=== PATIENT | male | born 1960 | race African-American/Black ===

== ENCOUNTER → 2016-10-17 | Outpatient (CLI) | payer OTHER ==
[~2016-10-17] MED LIST: AMIT75TA2 PO; ASPI81TA19; ATOR1TAB18 PO; CHLO25TA2 PO; IBUP800T23 PO; LANTINJ SQ; LANTUS2P SQ; LISI40TA PO; LYRI75CA PO; METF1000 PO; NOVOLOGP2 SQ; PEN31MIS2; POTA-243 PO; TOPR50TA PO; VIAG100T PO; [UNRECOGNIZED DRUG - CODE] SQ
[2016-10-17 13:25] LABS: AUTOMATED NEUTROPHIL # 2.7 TH/MM3 (1.8-7.7); BASOPHIL % 0.4 % (0.0-2.0); EOSINOPHIL # 0.2 TH/MM3 (0-0.4); EOSINOPHIL % 2.3 % (0.0-4.0); HEMATOCRIT 38.8 % (39.0-51.0); HEMO FLAGS DIFF FINAL; LYMPH % 48.6 % (9.0-44.0); LYMPHOCYTE # 3.3 TH/MM3 (1.0-4.8); MEAN CELL VOLUME 85.6 FL (80.0-100.0); MONO % 7.8 % (0.0-8.0); NEUT % 40.9 % (16.0-70.0); PLATELET COUNT 247 TH/MM3 (150-450); RED BLOOD COUNT 4.53 MIL/MM3 (4.50-5.90); RED CELL DISTRIBUTION WIDTH 12.8 % (11.6-17.2); WHITE BLOOD COUNT 6.7 TH/MM3 (4.0-11.0)
[2016-10-17 14:04] LABS: ALKALINE PHOSPHATASE 71 U/L (45-117); ALT (GPT) 38 U/L (12-78); ANION GAP 8 MEQ/L (5-15); AST (GOT) 22 U/L (15-37); BICARBONATE 31.8 MEQ/L (21.0-32.0); BLOOD UREA NITROGEN 20 MG/DL (7-18); CHLORIDE 98 MEQ/L (98-107); FREE T4 1.01 NG/DL (0.76-1.46); GLOMERULAR FILTRATION RATE 72 ML/MIN (>89); GLUCOSE,FASTING 234 MG/DL (74-99); HDL CHOLESTEROL 33.7 MG/DL (40.0-60.0); INDIRECT BILIRUBIN 0.3 MG/DL (0.0-0.8); LDL CHOLESTEROL 45 MG/DL (0-99); POTASSIUM 3.3 MEQ/L (3.5-5.1); SODIUM (NA) 138 MEQ/L (136-145); TOTAL BILIRUBIN ADULT 0.4 MG/DL (0.2-1.0)
[2016-10-17 16:53] LABS: HEMOGLOBIN A1a 0.6 %; HEMOGLOBIN A1b 2.3 %; HEMOGLOBIN LA1C 2.9 %; HEMOGLOBIN P3 4.7 %
== END ==
LOC: CLAB 12:59
PROVIDERS: ATTEND Internal Medicine Cardiovascular Disease
DX: R07.2 Precordial pain (principal); R73.01 Impaired fasting glucose; I10 Essential (primary) hypertension; Z79.899 Other long term (current) drug therapy
CPT/HCPCS: 36415; 80048; 80061; 80076; 83036; 84439; 84443; 84480; 85025